=== PATIENT | female | born 1965 | race Caucasian/White ===

== ENCOUNTER 2022-01-30 09:01 | Outpatient (CLI) | payer BC, SELFPAY ==
[2022-01-30 11:05] LABS: Albumin* 4.3 g/dL (3.3-5.0); Chloride* 103 mmol/L (96-114); Potassium* 3.9 mmol/L (3.6-5.1); Sodium* 138 mmol/L (135-149)
[2022-01-30 11:07] LABS: Cholesterol* 257 mg/dL (90-199); Creatinine* 0.6 mg/dL (0.5-1.5); Estimated Glomerular Filt Rate 105 ml/min
[2022-01-30 11:08] LABS: Alanine Aminotransferase* 36 U/L (4-35); Alkaline Phosphatase* 140 U/L (40-150); Aspartate Amino Transferase* 38 U/L (12-35); Bilirubin Total* 0.8 mg/dL (0.1-1.5); Blood Urea Nitrogen* 14 mg/dL (7-30); Calcium* 9.3 mg/dL (8.4-10.6); Carbon Dioxide* 28 mmol/L (20-32); Glucose* 185 mg/dL (60-115); Total Protein* 7.5 g/dL (6.0-8.3); Triglycerides* 138 mg/dL (40-149)
[2022-01-30 11:09] LABS: HDL Cholesterol* 53 mg/dL (>=50); LDL Cholesterol Calculated 176 mg/dL (<100)
== END 2022-01-30 09:02 | disposition home or self-care (01) ==
PROVIDERS: PCP Family Medicine; Visit Provider Family Medicine
DX: E78.5 Hyperlipidemia, unspecified (principal)
CPT/HCPCS: 80053; 80061

== ENCOUNTER 2022-04-07 15:32 | Outpatient (CLI) | payer BC, SELFPAY ==
--- NOTE | 2022-04-07 15:40 | CRLHL7_ITS ---
For Patients: As a result of the Century Cures Act, medical imaging exams and procedure reports are released immediately into your electronic medical record. You may view this report before your referring provider. If you have questions, please contact your health care provider. BILATERAL DIGITAL SCREENING MAMMOGRAM WITH COMPUTER-AIDED DETECTION CLINICAL HISTORY: Routine screening exam. COMPARISON: 03/06/2013, 04/09/2011. TECHNIQUE: Digital mammogram in CC and MLO projections including computer-aided detection (CAD). BREAST COMPOSITION: There are areas of scattered fibroglandular density. FINDINGS: RIGHT Breast: Focal nodular density within the lower inner quadrant 3 cm from the nipple, probable lymph node. LEFT Breast: No suspicious findings. IMPRESSION: RIGHT breast asymmetry/mass. RECOMMENDATIONS: Additional mammographic views of the RIGHT breast including 3D CC/MLO spot compression. RIGHT breast ultrasound may also be required. BI-RADS Category 0: Incomplete: Need Additional Imaging Evaluation and/or Prior Mammograms for Comparison [facility] will contact the patient for follow-up. A lay language report of this examination will be provided to the patient. Dictated by Shukri Wyatt MD @ 04/08/2022 10:22:35 AM jj/Dictated by: Shukri Wyatt MD @ 04/08/2022 10:23:00 AM (Electronically Signed)
== END 2022-04-07 15:33 | disposition home or self-care (01) ==
LOC: MAMMO 15:36
PROVIDERS: PCP Family Medicine; Visit Provider Family Medicine
DX: Z12.31 Encounter for screening mammogram for malignant neoplasm of breast (principal); N63.10 Unspecified lump in the right breast, unspecified quadrant
CPT/HCPCS: 77063; 77067

== ENCOUNTER 2022-04-17 08:41 | Outpatient (CLI) | payer BC, SELFPAY ==
--- NOTE | 2022-04-17 08:45 | CRLHL7_ITS ---
For Patients: As a result of the Cures Act, medical imaging exams and procedure reports are released immediately into your electronic medical record. You may view this report before your referring provider. If you have questions, please contact your health care provider. DIGITAL DIAGNOSTIC RIGHT MAMMOGRAM WITH TOMOSYNTHESIS AND COMPUTER-AIDED DETECTION RIGHT BREAST ULTRASOUND CLINICAL HISTORY: RIGHT breast mass/asymmetry. COMPARISON: 04/07/2022. TECHNIQUE: Digital RIGHT mammogram in two projections. Tomosynthesis and CAD utilized. Real-time ultrasound imaging of RIGHT breast with imaging documentation. BREAST COMPOSITION: There are areas of scattered fibroglandular density. FINDINGS: 3D spot compression CC/MLO RIGHT breast mammograms submitted. Persistent nodular density within medial RIGHT breast without architectural distortion. Targeted RIGHT breast ultrasound performed in the medial RIGHT breast, 2 o`clock 3 cm from the nipple. In this location there is a circumscribed anechoic simple cyst measuring 6 x 5 x 6 millimeters. No findings concerning for malignancy. IMPRESSION: Simple cyst RIGHT breast 2 o`clock 3 cm from the nipple measuring 6 millimeters. RECOMMENDATIONS: Annual BILATERAL screening mammography. Results and recommendations discussed with the patient through an dolphin trainer. BI-RADS Category 2: Benign A lay language report of this examination will be provided to the patient. Dictated by Shukri Wyatt MD @ 04/17/2022 9:43:49 AM /Dictated by: Shukri Wyatt MD @ 04/17/2022 9:43:00 AM (Electronically Signed)
--- NOTE | 2022-04-17 09:15 | CRLHL7_ITS ---
For Patients: As a result of the Cures Act, medical imaging exams and procedure reports are released immediately into your electronic medical record. You may view this report before your referring provider. If you have questions, please contact your health care provider. PLEASE SEE DIGITAL DIAGNOSTIC RIGHT MAMMOGRAM PERFORMED SAME DAY CRL:[email or web address]/Dictated by: Shukri Wyatt MD @ 04/17/2022 9:43:00 AM (Electronically Signed)
== END 2022-04-17 08:42 | disposition home or self-care (01) ==
LOC: MAMMO 08:42
PROVIDERS: PCP Family Medicine; Visit Provider Family Medicine
DX: N63.10 Unspecified lump in the right breast, unspecified quadrant (principal); R92.8 Other abnormal and inconclusive findings on diagnostic imaging of breast; N60.01 Solitary cyst of right breast
CPT/HCPCS: 76642; 77065; G0279

== ENCOUNTER 2022-06-22 08:55 | Outpatient (CLI) | payer BC, SELFPAY ==
[2022-06-22 12:30] LABS: Aspartate Amino Transferase* 22 U/L (12-35); Cholesterol* 156 mg/dL (90-199)
[2022-06-22 12:31] LABS: Alanine Aminotransferase* 20 U/L (4-35); HDL Cholesterol* 53 mg/dL (>=50); LDL Cholesterol Calculated 74 mg/dL (<100); Triglycerides* 147 mg/dL (40-149)
== END 2022-06-22 08:56 | disposition home or self-care (01) ==
LOC: NFLDREF 08:55
PROVIDERS: PCP Family Medicine; Visit Provider Family Medicine
DX: E11.9 Type 2 diabetes mellitus without complications (principal)
CPT/HCPCS: 80061; 84450; 84460

== ENCOUNTER 2023-03-12 07:35 | Outpatient (CLI) | payer BC, SELFPAY | END 2023-03-12 07:36 | disposition home or self-care (01) | LOC: NFLDREF 03-14 19:57 | PROVIDERS: PCP Family Medicine; Referring Provider Family Medicine; Visit Provider Family Medicine | DX: E78.5 Hyperlipidemia, unspecified (principal); R73.01 Impaired fasting glucose | CPT/HCPCS: 80053; 80061 ==

== ENCOUNTER 2023-06-17 09:33 | Outpatient (CLI) | payer BC, SELFPAY ==
--- NOTE | 2023-06-17 10:15 | CRLHL7_ITS ---
For Patients: As a result of the Century Cures Act, medical imaging exams and procedure reports are released immediately into your electronic medical record. You may view this report before your referring provider. If you have questions, please contact your health care provider. BILATERAL SCREENING MAMMOGRAM WITH COMPUTER-AIDED DETECTION AND TOMOSYNTHESIS TECHNIQUE: CC and MLO views were obtained. These mammographic images have been obtained using full-field digital technique. These mammographic images were interpreted with the benefit of computer-aided detection. Breast Tomosynthesis was used in this interpretation. COMPARISON FILM: 04/07/22, 03/06/13,04/09/11. FINDINGS: There are scattered areas of fibroglandular density. IMPRESSION: There is no radiographic evidence for malignancy. ASSESSMENT: BI-RADS Category 1: Negative RECOMMENDATION: Routine screening mammogram in 1 year. A lay language report of this examination will be provided to the patient. Shukri Wyatt M.D. Diagnostic Radiologist [email or web address] SP/Dictated by: Shukri Wyatt MD @ 06/17/2023 11:15:00 AM (Electronically Signed)
== END 2023-06-17 09:34 | disposition home or self-care (01) ==
LOC: MAMMO 09:34
PROVIDERS: PCP Family Medicine; Visit Provider Family Medicine
DX: Z12.31 Encounter for screening mammogram for malignant neoplasm of breast (principal)
CPT/HCPCS: 77063; 77067; T1013

== ENCOUNTER 2024-05-08 07:42 | Outpatient (CLI) | payer BC, SELFPAY | END 2024-05-08 07:43 | disposition home or self-care (01) | LOC: NFLDREF 18:16 | PROVIDERS: PCP Family Medicine; Referring Provider Family Medicine; Visit Provider Family Medicine | DX: E11.9 Type 2 diabetes mellitus without complications (principal); I10 Essential (primary) hypertension; E78.5 Hyperlipidemia, unspecified; Z79.84 Long term (current) use of oral hypoglycemic drugs | CPT/HCPCS: 80053; 80061; 82043; 82570 ==

== ENCOUNTER 2024-10-27 14:39 | Outpatient (CLI) | payer BC, SELFPAY ==
--- NOTE | 2024-10-27 14:40 | CRLHL7_ITS ---
For Patients: As a result of the Century Cures Act, medical imaging exams and procedure reports are released immediately into your electronic medical record. You may view this report before your referring provider. If you have questions, please contact your health care provider. INDICATION: BILATERAL SCREENING MAMMOGRAM, ASYMPTOMATIC 59 Y/O FEMALE COMPARISON: 06/17/2023, 04/07/2022, 03/06/2013 TECHNIQUE: Digital mammogram in CC and MLO projections including computer-aided detection (CAD) and tomosynthesis. BREAST COMPOSITION: There are scattered areas of fibroglandular density. FINDINGS: No suspicious findings. ASSESSMENT: BI-RADS 1 Negative RECOMMENDATION: Annual screening mammogram. A lay language report of this examination will be provided to the patient. Dictated by: Shukri Wyatt MD @ 11/02/2024 09:34:25 (Electronically Signed)
== END 2024-10-27 14:40 | disposition home or self-care (01) ==
LOC: MAMMO 14:39
PROVIDERS: PCP Family Medicine; Visit Provider Family Medicine
DX: Z12.31 Encounter for screening mammogram for malignant neoplasm of breast (principal)
CPT/HCPCS: 77063; 77067; T1013